=== PATIENT | female | born 1970 | race Caucasian/White ===

== ENCOUNTER 2017-08-19 14:02 | Outpatient (CLI) | payer OTHER | END 2017-08-19 14:16 | disposition home or self-care (01) | LOC: NUCLEAR 14:02 | DX: I82.402 Acute embolism and thrombosis of unspecified deep veins of left lower extremity (principal) ==

== ENCOUNTER → 2017-08-26 | Outpatient (CLI) | payer OTHER | END | disposition home or self-care (01) | LOC: NUCLEAR 11:44 | DX: M81.0 Age-related osteoporosis without current pathological fracture (principal); Z13.820 Encounter for screening for osteoporosis ==

== ENCOUNTER 2019-04-15 08:45 | Outpatient (CLI) | payer OTHER | END 2019-04-15 08:57 | disposition home or self-care (01) | LOC: SONOGRAMA 08:45 | DX: N83.00 Follicular cyst of ovary, unspecified side (principal); N80.8 Other endometriosis; D25.9 Leiomyoma of uterus, unspecified; D05.11 Intraductal carcinoma in situ of right breast; Z15.01 Genetic susceptibility to malignant neoplasm of breast; N64.4 Mastodynia; N60.11 Diffuse cystic mastopathy of right breast ==

== ENCOUNTER 2019-04-15 10:19 | Outpatient (CLI) | payer OTHER | END 2019-04-15 10:38 | disposition home or self-care (01) | LOC: NUCLEAR 10:19 | DX: M81.0 Age-related osteoporosis without current pathological fracture (principal); Z13.820 Encounter for screening for osteoporosis ==

== ENCOUNTER 2020-04-12 09:23 | Outpatient (CLI) | payer OTHER | END 2020-04-12 09:31 | disposition home or self-care (01) | LOC: SONOGRAMA 09:23 | PROVIDERS: ATTEND Internal Medicine | DX: R10.84 Generalized abdominal pain (principal); N64.4 Mastodynia; N60.11 Diffuse cystic mastopathy of right breast; N60.12 Diffuse cystic mastopathy of left breast; N80.8 Other endometriosis; D25.9 Leiomyoma of uterus, unspecified ==

== ENCOUNTER 2021-05-11 12:46 | Outpatient (CLI) | payer OTHER | END 2021-05-11 14:16 | disposition home or self-care (01) | LOC: SONOGRAMA 12:46 | PROVIDERS: ATTEND Internal Medicine | DX: N80.8 Other endometriosis (principal); N20.0 Calculus of kidney; N83.00 Follicular cyst of ovary, unspecified side; D25.9 Leiomyoma of uterus, unspecified; R31.29 Other microscopic hematuria ==

== ENCOUNTER → 2021-05-11 | Outpatient (CLI) | payer OTHER | END | disposition home or self-care (01) | LOC: NUCLEAR 14:57 | PROVIDERS: ATTEND Internal Medicine | DX: M81.0 Age-related osteoporosis without current pathological fracture (principal) ==